=== PATIENT | female | born 1985 | race Caucasian/White ===

== ENCOUNTER 2016-11-30 11:35 | Emergency (ER) | payer SELFPAY ==
--- NOTE | ~2016-11-30 | ER ---
PATIENT'S NAME: MAY CASTRO [facility] AGE: 31 Y [address] ROOM: [place] [address] LOCATION: ED ADMIT DATE: 11/30/2016 ER/Outpatient Report DISCHARGE DATE: 11/30/2016 FAMILY PHYSICIAN: PHYSICIAN, NO ATTENDING PHYSICIAN: Shad Shaw Time of Arrival: 1135 hours. Time of Evaluation/Encounter: 1145 hours. CHIEF COMPLAINT: High blood sugar. HISTORY OF PRESENT ILLNESS: The patient is a pleasant, well-appearing 31-year-old female complaining of excessive thirst, and foot pain that has progressively worsened over the last month or two. She is a known type 2 rwe-myvodrs-rqiafsiwn diabetic who has been notably noncompliant with her medications for the last [address] Osborne. In the last 2 weeks, she has had an acute worsening in her degree of thirst and foot pain. Still not taking her routine medications and has not followed up with her regular physician. Denies any chest pain. Denies changes in mentation. Denies any syncopal or near- syncopal events. PERTINENT REVIEW OF SYSTEMS: All systems reviewed by me and negative unless otherwise stated in the HPI. PAST MEDICAL HISTORY: Includes: Type 2 diabetes mellitus. PAST SURGICAL HISTORY: Cholecystectomy. ALLERGIES: PENICILLIN ALLERGY. CURRENT MEDICATIONS: Not taking any medications at this time routinely. SOCIAL HISTORY: The patient is a current smoker one pack per day for the last 10 to 15 years. States that she is not ready to quit yet. OBJECTIVE: VITAL SIGNS: Height 5 feet 6-1/2 inches; weight 110.3 kg; blood pressure 130/83; pulse 87; respirations 16 per minute; temperature 97.5, tympanically; PATIENT'S NAME: MAY CASTRO [facility] AGE: 31 Y [address] ROOM: [place] [address] LOCATION: ED ADMIT DATE: 11/30/2016 ER/Outpatient Report DISCHARGE DATE: 11/30/2016 FAMILY PHYSICIAN: PHYSICIAN, NO ATTENDING PHYSICIAN: Shad Shaw and SpO2 is 96% on room air. Current pain 5/10. GENERAL: The patient is an obese female, in no acute distress. She is calm, alert, and oriented to person, place, and time. HEENT: Head is atraumatic and normocephalic. Eyes with conjunctivae clear. No discharge. Pupils are PERRLA bilaterally. EOMFI bilaterally. No nystagmus. NECK: Supple and without lymphadenopathy. Trachea midline. No JVD. LUNGS: Clear to auscultation bilaterally. No wheezes, crackles, rhonchi, or stridor. Normal respiratory effort. HEART: Regular rate and rhythm. No S3, S4, or extra sounds. ABDOMEN: Positive bowel sounds x4. Normal percussion. Soft, but obese. Nontender and nondistended. No masses. Sha's negative bilaterally. EXTREMITIES: Numbness and tingling in the feet bilaterally that extends from the mid arch down to the toes. Monofilament testing is accurate for 7/10 sites on the right foot and 8/10 sites on the left foot. Capillary refill is less than 2 seconds at the nail beds distal to injury. No clubbing, cyanosis, or edema noted. Pulses are +2/4 at the dorsalis pedis bilaterally. LABORATORY DATA: CMS; sodium 130, potassium 4.1, chloride 96, CO2 of 24, anion gap 14.1, glucose 483, calcium 8.9, BUN 11, creatinine 0.9, total protein 8.2, albumin 3.6, globulin 4.6, A/G ratio 0.8, and total bilirubin 0.3. Alkaline phosphatase 206, AST 12, ALT 34, and GFR is over 60. Magnesium is 2.1. Hemoglobin A1c at 11.7, mean glucose by calculation is 289.1 mg/dL. Venous pH of 7.42. CBC with auto differential with a white count at 13.6, red blood cells 5.53, hemoglobin 15.5, hematocrit 45.4, MCV 82.1, MCH 28.0, MCHC 34.1, RDW 12.7, platelets 307,000, and MPV 10.9. Auto differential with an elevated neutrophil count at 9.9, and IG percentage at 0.4, but otherwise results within normal limits. Urinalysis shows urine color yellow; turbidity, clear; specific gravity 1.010; pH 5.0; leukocytes, negative; nitrite, negative; protein, negative; glucose 1000 mg/dL; and ketones 15 mg/dL. Urobilinogen, normal; bilirubin, negative; and blood, negative. All the above laboratory results were discussed in detail with the patient. ASSESSMENT: 1. Hyperglycemia. 2. Qdx-tfvelzp-qpgzygtga type 2 diabetes mellitus. PLAN: We will restart the patient on her metformin and glimepiride with standard starting doses. I do not feel she needs insulin or acute intervention at this time since she is not producing significant ketones in the blood. We would PATIENT'S NAME: MAY CATSRO [facility] AGE: 31 Y [address] ROOM: [place] [address] LOCATION: [facility] ADMIT DATE: 11/30/2016 ER/Outpatient Report DISCHARGE DATE: 11/30/2016 FAMILY PHYSICIAN: PHYSICIAN, AJ ATTENDING PHYSICIAN: Shad Shaw still like her to follow up with her regular family physician and re-establish within the next week. We will provide her 2 weeks of these starting medications. Provided type 2 diabetes education and handouts. Strongly emphasized that she needs to be compliant with her medications as well as a meager diet. Avoid sweets. Emphasized starting an exercise plan. Also discussed that she should start a blood sugar journal. She has a home meter and about 20 to 30 strips available to her at this time. The patient verbalized understanding and was receptive to the conversation. Both of her parents were present in the room as well as a supportive role. All their questions were answered as well. Take all medications as prescribed. Discussed medication risks, side effects, and benefits in detail. Give plenty of rest and fluids. Take Tylenol or ibuprofen as directed for fever or discomfort, unless allergic aspirin sensitive or allergic. Return to the emergency department or primary care provider if symptoms persist or worsen. VALENTINA GOLD PA-C FOR MD ARVIN BARLOW/modl /[id number] d: 11/30/162013 t: 12/09/161952, OUTPATIENT REPORT
[2016-11-30 12:23] LABS: BASOPHIL # 0.1 K/uL (0.0-0.2); BASOPHIL % 0.4 %; EOSINOPHIL # 0.3 K/uL (0.0-0.5); EOSINOPHIL % 1.9 %; HEMATOCRIT 45.4 % (33.0-46.0); HEMOGLOBIN 15.5 g/dL (11.0-15.0); IMMATURE GRANULOCYTE # 0.1 K/uL (0.0-0.3); IMMATURE GRANULOCYTE % 0.4 %; LYMPHOCYTE # 2.6 K/uL (0.8-4.0); LYMPHOCYTE % 19.4 %; MCHC 34.1 gm/dL (32.0-36.5); MCV 82.1 fl (83.0-98.0); MONOCYTE # 0.8 K/uL (0.0-1.0); MONOCYTE % 5.5 %; MPV 10.9 fl (9.4-12.4); NEUTROPHIL # (ANC) 9.9 K/uL (1.8-7.8); NEUTROPHIL % 72.4 %; NRBC % 0 /100WBC (0-0.00); PLATELET COUNT 307 K/uL (150-450); RBC 5.53 M/uL (3.50-5.50); RDW-CV 12.7 % (11.9-14.6); WBC 13.6 K/uL (4.0-11.0)
[2016-11-30 12:29] LABS: BILIRUBIN URINE NEGATIVE (NEGATIVE); BLOOD URINE NEGATIVE /UL (NEGATIVE); COLOR URINE YELLOW (YELLOW); GLUCOSE URINE 1000 mg/dL (NEGATIVE); KETONE URINE 15 mg/dL (NEGATIVE); LEUKOCYTES URINE NEGATIVE /UL (NEGATIVE); NITRITE URINE NEGATIVE (NEGATIVE); PROTEIN URINE NEGATIVE (NEGATIVE); TURBIDITY URINE CLEAR (CLEAR); UROBILINOGEN URINE NORMAL (NORMAL)
[2016-11-30 12:40] LABS: ALBUMIN 3.6 gm/dL (3.5-5.0); ALK PHOS 206 IU/L (33-138); ALT 34 IU/L (12-78); ANION GAP 14.1 (10.0-19.0); AST 12 IU/L (10-40); BLOOD UREA NITROGEN 11 mg/dL (6-24); CALCIUM 8.9 mg/dL (8.5-10.5); CHLORIDE 96 mMol/L (96-110); CO2 24 mMol/L (22-32); CREATININE 0.9 mg/dL (0.5-1.1); ESTIMATED GFR (MDRD EQUATION) > 60; MAGNESIUM 2.1 mg/dL (1.8-2.6); POTASSIUM 4.1 mMol/L (3.7-5.1); SODIUM 130 mMol/L (135-145); TOTAL BILIRUBIN 0.3 mg/dL (0.0-1.5); TOTAL PROTEIN 8.2 g/dL (6.0-8.4)
== END 2016-11-30 13:23 | disposition disaster alternative care site (69) ==
LOC: GMED 11:35
PROVIDERS: Physician Assistant
DX: E11.65 Type 2 diabetes mellitus with hyperglycemia (principal); M79.673 Pain in unspecified foot; F17.210 Nicotine dependence, cigarettes, uncomplicated; Z90.49 Acquired absence of other specified parts of digestive tract; Z88.0 Allergy status to penicillin

== ENCOUNTER 2017-01-15 22:25 | Emergency (ER) | payer SELFPAY ==
--- NOTE | ~2017-01-15 | ER ---
[facility] 31 Y [address] ROOM: [place] [address] LOCATION: [facility] ADMIT DATE: 01/15/2017 ER/Outpatient Report DISCHARGE DATE: 01/16/2017 FAMILY PHYSICIAN: PHYSICIAN, NO ATTENDING PHYSICIAN: Shad Shaw Admission date and time documented in the medical record. I saw the patient at 2240 hours. CHIEF COMPLAINT: Swelling, right axilla. HISTORY OF PRESENT ILLNESS: The patient is a 31-year-old female, who over the past 2 to 3 weeks has had a progressively enlarging mass in the right axilla. Tender, red, swollen. No drainage as yet. Low-grade fever if any. No other source. HOME MEDICATIONS: See attached medication list. ALLERGIES: PENICILLIN. SOCIAL HISTORY: The patient smokes half a pack of cigarettes per day. Nondrinker. SIGNIFICANT PAST MEDICAL HISTORY: Xbg-onsuira-wqrihvzgm diabetes mellitus type 2 and tobacco abuse. OPERATIONS: Cholecystectomy. REVIEW OF SYSTEMS: All systems reviewed by me are negative with the exception of those discussed in the history of present illness. PHYSICAL EXAMINATION: VITAL SIGNS: Temperature 99.2 tympanic, pulse 105, respirations 16, blood pressure 148/70, and O2 saturation on room air is 97%. CHEST: On examination, the patient has about 8 cm circular swelling in the right axilla, central, golf ball sized reddened area that has a head. It is not fluctuant at this time. Indurated. Tender. No red streaking or ascending lymphangitis. NEUROVASCULAR: Intact. Pulse intact. PATIENT'S NAME: MAY CASTRO [facility] AGE: 31 Y [address] ROOM: [place] [address] LOCATION: [facility] ADMIT DATE: 01/15/2017 ER/Outpatient Report DISCHARGE DATE: 01/16/2017 FAMILY PHYSICIAN: PHYSICIAN, NO ATTENDING PHYSICIAN: Shad Shaw IMPRESSION: Developing abscess, right axilla. PLAN: The patient was given 2 grams of Rocephin IV in the emergency department. Discharged home. Observation. Activity as tolerated. Continue present home medications and care. Warm hot packs to right armpit intermittently as needed. Bactrim double strength b.i.d. for 8 days. [place] as needed for pain. Follow up with personal physician in 3 to 4 days, at which time may need to have an I and D of this area. MD DIANE BARLOW/emelial /[id number] d: 01/16/17 0256 t: 01/16/17 1826, OUTPATIENT REPORT
== END 2017-01-16 00:12 | disposition disaster alternative care site (69) ==
LOC: GMED 22:25
DX: L02.411 Cutaneous abscess of right axilla (principal); F17.210 Nicotine dependence, cigarettes, uncomplicated; E11.9 Type 2 diabetes mellitus without complications; Z88.0 Allergy status to penicillin; Z90.49 Acquired absence of other specified parts of digestive tract; Z79.84 Long term (current) use of oral hypoglycemic drugs
CPT/HCPCS: J0696; J7050